=== PATIENT | female | born 1965 | race Caucasian/White ===

== ENCOUNTER 2018-11-25 15:04 | Inpatient (IN) | payer BC ==
[2018-11-25] MEDS ORDERED: ONDANSETRON 4 MG/2 ML VIAL IVP STA (15:10)
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
[2018-11-25 15:17] LABS: Glucose,Whole Blood 265 mg/dL (75-99)
[2018-11-25 15:40] LABS: INR 0.9 (<1.2); Partial Thromboplastin Time 25.9 sec (22.0-30.0); Prothrombin Time 10.2 sec (9.0-12.0)
[2018-11-25 15:43] LABS: Basophils # (A) 0.2 k/uL (0-0.2); Basophils % (A) 2 %; Eosinophils # (A) 0.6 k/uL (0-0.7); Eosinophils % (A) 4 %; HCT 48.8 % (34.0-46.0); HGB 15.7 gm/dL (11.4-16.0); Hypochromasia Slight; Lymphocytes # (A) 5.7 k/uL (1.0-4.8); Lymphocytes % (A) 38 %; MCH 30.4 pg (25.0-35.0); MCHC 32.2 g/dL (31.0-37.0); MCV 94.3 fL (80.0-100.0); Mean Platelet Volume 9.3; Monocytes # (A) 0.8 k/uL (0-1.0); Monocytes % (A) 6 %; Neutrophils % (A) 47 %; Platelet Count 327 k/uL (150-450); RBC 5.18 m/uL (3.80-5.40)
[2018-11-25 15:45] LABS: ABG Base Excess -15.2 mmol/L; ABG HCO3 13 mmol/L (21-25); ABG Oxygen Saturation 88.5 % (94-97); ABG PCO2 33 mmHg (35-45); ABG PO2 67 mmHg (83-108); ABG TCO2 14 mmol/L (19-24); Allen Test Performed? Yes
[2018-11-25 15:49] LABS: Appearance,Urine Clear (Clear); Bacteria,Urine Few /hpf; Bilirubin,Urine Negative (Negative); Blood,Urine Small (Negative); Color,Urine Yellow; Glucose,Urine (UA) Trace (Negative); Hyaline Casts,Urine 4 /lpf (0-2); Ketones,Urine Trace (Negative); Leukocyte Esterase,Urine Negative (Negative); Mucus,Urine Rare /hpf; Nitrite,Urine Positive (Negative); PH, Urine 6.5 (5.0-8.0); Protein,Urine 2+ (Negative); RBC,Urine 1 /hpf (0-5); Specific Gravity,Urine 1.019 (1.001-1.035); Squamous Epithelial Cell,Urine <1 /hpf (0-4); WBC,Urine 4 /hpf (0-5)
[2018-11-25 15:58] LABS: Amphetamine Screen,Urine Not Detected (NotDetected); Barbiturate Screen,Urine Not Detected (NotDetected); Benzodiazepines Screen,Urine Not Detected (NotDetected); Cocaine Screen,Urine Not Detected (NotDetected); Methadone Screen, Urine Not Detected (NotDetected); Opiate Screen,Urine Not Detected (NotDetected); Oxycodone Screen, Urine Not Detected (NotDetected); Phencyclidine Screen,Urine Not Detected (NotDetected); Tricyclic Antidepressant,Urine Not Detected (NotDetected); Urn Cannabinoid Scrn Detected (NotDetected)
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
[2018-11-25 16:07] LABS: ALT 28 U/L (9-52); AST 43 U/L (14-36); African American GFR (CKD) 59 (>60 ml/min/1.73 sqM); Albumin 3.9 g/dL (3.5-5.0); Alcohol <10 mg/dL; Alkaline Phosphatase 114 U/L (38-126); Anion Gap 25 mmol/L; Blood Urea Nitrogen 16 mg/dL (7-17); Calcium 8.9 mg/dL (8.4-10.2); Chloride 108 mmol/L (98-107); Creatine Kinase 199 U/L (30-135); Glucose 243 mg/dL (74-99); Potassium 3.9 mmol/L (3.5-5.1); Sodium 142 mmol/L (137-145); Total Bilirubin 0.7 mg/dL (0.2-1.3); Total Protein 6.8 g/dL (6.3-8.2)
[2018-11-25 16:18] LABS: Carbon Dioxide 9 mmol/L (22-30)
[2018-11-25] MEDS ORDERED: IPRATROPIUM-ALBUTEROL 3 ML NEB INHALATION STA (16:22)
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
[2018-11-25] MEDS ORDERED: PIPERACILLIN-TAZOBACTAM 3.375 GM in SODIUM CHLORIDE 0.9% 100 ML IVPB STA ×2 (16:32→17:09)
[2018-11-25] MEDS ORDERED: NALOXONE 0.4 MG/ML 1 ML VIAL IV PRN (16:47)
[2018-11-25] MEDS ORDERED: PIPERACILLIN-TAZOBACTAM 4.5 GM in SODIUM CHLORIDE 0.9% 100 ML IVPB STA (16:54)
[2018-11-25] MEDS ORDERED: SODIUM CHLORIDE 0.9% 1,000 ML IV SCH (17:00)
[2018-11-25] MEDS ORDERED: DEXTROSE 5% IN WATER 1,000 ML with SODIUM BICARB (1 MEQ/ML) 150 ML IV SCH (17:00)
[2018-11-25 19:15] LABS: Glucose,Whole Blood 227 mg/dL (75-99)
[2018-11-25 19:59] LABS: ABG Base Excess -5.2 mmol/L; ABG HCO3 21 mmol/L (21-25); ABG Oxygen Saturation 87.1 % (94-97); ABG PCO2 39 mmHg (35-45); ABG PH 7.34 (7.35-7.45); ABG TCO2 22 mmol/L (19-24); Allen Test Performed? Yes
[2018-11-25 20:01] LABS: ABG PO2 57 mmHg (83-108)
[2018-11-25] MEDS ORDERED: ROCURONIUM BROMIDE 10 MG/ML 10 ML VIAL IV ONE (20:15)
[2018-11-25] MEDS ORDERED: PHENYLEPHRINE 10 MG/ML VIAL ONE (20:15)
[2018-11-25] MEDS ORDERED: PROPOFOL 10 MG/ML 20 ML VIAL IV ONE (20:15)
[2018-11-25] MEDS ORDERED: SODIUM CHLORIDE 0.9% 1,000 ML IV ONE (20:30)
[2018-11-25] MEDS: IPRATROPIUM-ALBUTEROL 3 ML NEB INHALATION SCH ×2 (20:35→23:09)
[2018-11-25] MEDS: NOREPINEPHRINE 4 MG in SODIUM CHLORIDE 0.9% 250 ML IV SCH (20:40)
--- NOTE | 2018-11-25 20:42 | XR ---
EXAMINATION TYPE: XR chest 1V portable DATE OF EXAM: 11/25/2018 Comparison: 11/25/2018 Clinical History: 53 year-old female tube placement Findings: Heart normal size. ET tube tip 2.0 cm from the vero. NG tube courses below the diaphragm. Diffuse b ilateral airspace opacity. No sizable effusion seen on the frontal view. Impression: 1. ET tube tip 2.0 cm from the vero. Satisfactory NG tube. 2. Diffuse bilateral airspace disease persists, stable to slightly increased.
[2018-11-25] MEDS: PROPOFOL 1,000 MG in EMPTY BAG 1 BAG IV SCH (21:00)
[2018-11-25 21:21] LABS: Glucose,Whole Blood 237 mg/dL (75-99)
[2018-11-25 21:35] LABS: ABG Base Excess -5.3 mmol/L; ABG HCO3 21 mmol/L (21-25); ABG Oxygen Saturation 96.1 % (94-97); ABG PCO2 44 mmHg (35-45); ABG PH 7.29 (7.35-7.45); ABG PO2 96 mmHg (83-108); ABG TCO2 23 mmol/L (19-24); Allen Test Performed? Yes
[2018-11-25] MEDS ORDERED: HEPARIN SODIUM,PORCINE 5,000 UNIT/ML 1 ML VIAL IV PRN (21:48)
[2018-11-25] MEDS ORDERED: HEPARIN SODIUM,PORCINE 5,000 UNIT/ML 1 ML VIAL IV ONE (21:48)
[2018-11-25] MEDS: CHLORHEXIDINE GLUCONATE 15 ML CUP MUCOUS MEM SCH (22:24)
[2018-11-25] MEDS: HEPARIN SOD,PORK IN 0.45% NACL 25,000 UNIT in 0.45% NACL 1 250ML.BAG IV SCH (22:25)
[2018-11-25] MEDS: methylPREDNISolone SOD SUCCI 125 MG/2 ML VIAL IV SCH (22:26)
[2018-11-25 22:29] LABS: Glucose,Whole Blood 191 mg/dL (75-99)
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
[2018-11-26] LABS: Glucose,Whole Blood 171 mg/dL (75-99)
[2018-11-26] MEDS ORDERED: INSULIN ASPART (NovoLOG) 100 UNIT/ML VIAL SQ SCH
[2018-11-26] MEDS ORDERED: SODIUM CHLORIDE 0.9% 1,000 ML IV ONE (01:03)
[2018-11-26] MEDS: PIPERACILLIN-TAZOBACTAM 3.375 GM in SODIUM CHLORIDE 0.9% 100 ML IVPB SCH ×3 (01:13→17:10)
[2018-11-26] MEDS: methylPREDNISolone SOD SUCCI 125 MG/2 ML VIAL IV SCH ×4 (01:13→18:53)
[2018-11-26 01:18] LABS: Glucose,Whole Blood 190 mg/dL (75-99)
[2018-11-26] MEDS: PROPOFOL 1,000 MG in EMPTY BAG 1 BAG IV SCH ×6 (01:27→23:25)
[2018-11-26] MEDS: SODIUM CHLORIDE 0.9% 1,000 ML IV SCH ×3 (02:15→18:59)
[2018-11-26] MEDS: IPRATROPIUM-ALBUTEROL 3 ML NEB INHALATION SCH ×6 (03:05→23:14)
[2018-11-26 04:06] LABS: Appearance,Urine Cloudy (Clear); Bilirubin,Urine Negative (Negative); Blood,Urine Moderate (Negative); Color,Urine Light Red; Glucose,Urine (UA) Negative (Negative); Ketones,Urine Negative (Negative); Leukocyte Esterase,Urine Moderate (Negative); Mucus,Urine Rare /hpf; Nitrite,Urine Negative (Negative); Protein,Urine 1+ (Negative); RBC,Urine >182 /hpf (0-5); Specific Gravity,Urine 1.019 (1.001-1.035); Squamous Epithelial Cell,Urine 1 /hpf (0-4); Urobilinogen,Urine <2.0 mg/dL (<2.0)
[2018-11-26 04:17] LABS: Basophils % (A) 0 %; Eosinophils # (A) 0.1 k/uL (0-0.7); Eosinophils % (A) 0 %; HCT 45.6 % (34.0-46.0); HGB 14.7 gm/dL (11.4-16.0); Lymphocytes # (A) 0.7 k/uL (1.0-4.8); Lymphocytes % (A) 4 %; MCH 29.6 pg (25.0-35.0); MCHC 32.2 g/dL (31.0-37.0); MCV 92.1 fL (80.0-100.0); Mean Platelet Volume 8.6; Monocytes # (A) 0.2 k/uL (0-1.0); Monocytes % (A) 1 %; Neutrophils # (A) 16.3 k/uL (1.3-7.7); Neutrophils % (A) 94 %; Platelet Count 284 k/uL (150-450); RBC 4.95 m/uL (3.80-5.40); RDW 13.3 % (11.5-15.5); WBC 17.3 k/uL (3.8-10.6)
[2018-11-26 04:55] LABS: Calcium 7.6 mg/dL (8.4-10.2); Magnesium 2.1 mg/dL (1.6-2.3); Potassium 4.1 mmol/L (3.5-5.1)
[2018-11-26] MEDS: INSULIN ASPART (NovoLOG) 100 UNIT/ML VIAL SQ SCH ×4 (05:53→20:00)
[2018-11-26 06:01] LABS: Glucose,Whole Blood 187 mg/dL (75-99)
[2018-11-26 07:01] LABS: ABG Base Excess -2.3 mmol/L; ABG HCO3 22 mmol/L (21-25); ABG Oxygen Saturation 98.3 % (94-97); ABG PCO2 32 mmHg (35-45); ABG PH 7.44 (7.35-7.45); ABG PO2 182 mmHg (83-108); ABG TCO2 23 mmol/L (19-24); Allen Test Performed? Yes
--- NOTE | 2018-11-26 08:13 | XR ---
EXAMINATION TYPE: XR chest 1V DATE OF EXAM: 11/26/2018 COMPARISON: 11/25/2018 HISTORY: 53-year-old female mechanical ventilator, ICU management TECHNIQUE: Single frontal view of the chest is obtained. FINDINGS: ET and NG tubes are satisfactory. Heart remains upper limits of normal in size. Multifocal airspace d isease shows some improvement in the upper lungs and the right. IMPRESSION: Persistent but with some improvement in bilateral diffuse airspace disease
[2018-11-26] MEDS ORDERED: SODIUM CHLORIDE 0.9% 1,000 ML IV SCH (09:15)
[2018-11-26] MEDS: PANTOPRAZOLE 40 MG/10 ML VIAL IV SCH (09:32)
[2018-11-26] MEDS: ASPIRIN 81 MG PO SCH (09:33)
[2018-11-26] MEDS: ATORVASTATIN 40 MG TAB PO SCH (09:33)
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
--- NOTE | 2018-11-26 10:01 | ECHOF ---
Referral Reason:evaluate heart function MEASUREMENTS -------- HEIGHT: 167.6 cm WEIGHT: 83.0 kg BP: 90/69 IVSd: 0.7 cm (0.6 - 1.1) LVIDd: 5.5 cm (3.9 - 5.3) LVPWd: 1.0 cm (0.6 - 1.1) IVSs: 0.9 cm LVIDs: 5.0 cm LVPWs: 0.9 cm LAESV Index (A-L): 14.55 ml/m Ao Diam: 2.5 cm (2.0 - 3.7) AV Cusp: 1.2 cm (1.5 - 2.6) LA Diam: 2.9 cm (2.7 - 3.8) MV EXCURSION: 18.872 mm (> 18.000) MV EF SLOPE: 174 mm/s (70 - 150) EPSS: 1.8 cm MV E Chaka: 0.90 m/s MV DecT: 111 ms MV A Chaka: 0.35 m/s MV E/A Ratio: 2.56 RAP: 20.00 mmHg RVSP: 40.57 mmHg FINDINGS -------- Sinus rhythm. This was a technically good study. Pt. on a vent. The left ventricle is mildly dilated. Left ventricular wall thickness is normal. There is severe global hypokinesis of LV . Overall left ventricular systolic function is severely impaired with, an EF < 20%. Normal LAP Grade 1 Diastolic Dysfunction. The right ventricle is normal in size. The left atrial size is normal. Normal LA size by volume 22+/-6 ml/m2. The right atrial size is normal. Interatrial and interventricular septum intact. The aortic valve is trileaflet and appears structurally normal. The mitral valve is normal. There is trace mitral regurgitation. Mild tricuspid regurgitation present. There is mild pulmonary hypertension. The right ventricular systolic pressure, as measured by Doppler, is 40.57mmHg. There is no pulmonic regurgitation present. The aortic root size is normal. The inferior vena cava is dilated with no significant inspiratory collapse which is consistent estima vernon right atrial pressure of >20 mmHg. There is no pericardial effusion. CONCLUSIONS -------- 1. Sinus rhythm. 2. This was a technically good study. 3. Pt. on a vent. 4. The left ventricle is mildly dilated. 5. Left ventricular wall thickness is normal. 6. There is severe global hypokinesis of LV . 7. Overall left ventricular systolic function is severely impaired with, an EF < 20%. 8. Normal LAP Grade 1 Diastolic Dysfunction. 9. The right ventricle is normal in size. 10. The left atrial size is normal. 11. Normal LA size by volume 22+/-6 ml/m2. 12. The right atrial size is normal. 13. Interatrial and interventricular septum intact. 14. The aortic valve is trileaflet and appears structurally normal. 15. The mitral valve is normal. 16. There is trace mitral regurgitation. 17. Mild tricuspid regurgitation present. 18. There is mild pulmonary hypertension. 19. The right ventricular systolic pressure, as measured by Doppler, is 40.57mmHg. 20. There is no pulmonic regurgitation present. 21. The aortic root size is normal. 22. The inferior vena cava is dilated with no significant inspiratory collapse which is consistent es timated right atrial pressure of >20 mmHg. 23. There is no pericardial effusion. DRAIN CLEANER: Lindsay Solis RDCS
[2018-11-26] MEDS: CHLORHEXIDINE GLUCONATE 15 ML CUP MUCOUS MEM SCH ×2 (10:15→20:00)
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
[2018-11-26 12:19] LABS: Glucose,Whole Blood 171 mg/dL (75-99)
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
[2018-11-26] MEDS: NOREPINEPHRINE 4 MG in SODIUM CHLORIDE 0.9% 250 ML IV SCH ×2 (15:10→20:55)
[2018-11-26 16:56] LABS: Glucose,Whole Blood 175 mg/dL (75-99)
[2018-11-26] MEDS ORDERED: SODIUM CHLORIDE 0.9% 500 ML 500 ML IV ONE (18:27)
[2018-11-26] MEDS: HYDROmorphone 1 MG/ML 1 ML SYRINGE IVP PRN ×2 (18:46→20:55)
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
[2018-11-26 20:08] LABS: Glucose,Whole Blood 175 mg/dL (75-99)
[2018-11-26] MEDS ORDERED: methylPREDNISolone SOD SUCCI 125 MG/2 ML VIAL IV SCH (20:15)
[2018-11-26] MEDS: HEPARIN SOD,PORK IN 0.45% NACL 25,000 UNIT in 0.45% NACL 1 250ML.BAG IV SCH (20:54)
[2018-11-27] MEDS: methylPREDNISolone SOD SUCCI 125 MG/2 ML VIAL IV SCH ×5 (00:03→23:51)
[2018-11-27] MEDS: PIPERACILLIN-TAZOBACTAM 3.375 GM in SODIUM CHLORIDE 0.9% 100 ML IVPB SCH ×4 (00:04→23:52)
[2018-11-27] MEDS: INSULIN ASPART (NovoLOG) 100 UNIT/ML VIAL SQ SCH ×7 (00:04→23:52)
[2018-11-27 00:10] LABS: Glucose,Whole Blood 181 mg/dL (75-99)
[2018-11-27] MEDS: NOREPINEPHRINE 4 MG in SODIUM CHLORIDE 0.9% 250 ML IV SCH ×2 (02:57→23:45)
[2018-11-27] MEDS: PROPOFOL 1,000 MG in EMPTY BAG 1 BAG IV SCH ×8 (02:58→23:46)
[2018-11-27] MEDS: IPRATROPIUM-ALBUTEROL 3 ML NEB INHALATION SCH ×6 (02:59→23:33)
[2018-11-27] MEDS: SODIUM CHLORIDE 0.9% 1,000 ML IV SCH ×3 (03:33→14:01)
[2018-11-27 04:07] LABS: Glucose,Whole Blood 187 mg/dL (75-99)
[2018-11-27 05:02] LABS: Basophils % (A) 0 %; Eosinophils % (A) 0 %; HCT 37.1 % (34.0-46.0); HGB 12.1 gm/dL (11.4-16.0); Lymphocytes # (A) 0.8 k/uL (1.0-4.8); Lymphocytes % (A) 4 %; MCH 30.4 pg (25.0-35.0); MCHC 32.7 g/dL (31.0-37.0); MCV 92.8 fL (80.0-100.0); Mean Platelet Volume 8.8; Monocytes # (A) 0.7 k/uL (0-1.0); Monocytes % (A) 4 %; Neutrophils # (A) 17.6 k/uL (1.3-7.7); Neutrophils % (A) 91 %; Platelet Count 246 k/uL (150-450); RDW 13.5 % (11.5-15.5); WBC 19.3 k/uL (3.8-10.6)
[2018-11-27 05:13] LABS: African American GFR (CKD) >90 (>60 ml/min/1.73 sqM); Anion Gap 10 mmol/L; Blood Urea Nitrogen 17 mg/dL (7-17); Calcium 7.6 mg/dL (8.4-10.2); Carbon Dioxide 19 mmol/L (22-30); Chloride 114 mmol/L (98-107); Glucose 189 mg/dL (74-99); Magnesium 2.2 mg/dL (1.6-2.3); Potassium 3.1 mmol/L (3.5-5.1); Sodium 143 mmol/L (137-145)
[2018-11-27] MEDS ORDERED: HEPARIN SODIUM,PORCINE 5,000 UNIT/ML 1 ML VIAL IV STA (05:51)
[2018-11-27] MEDS ORDERED: Potassium Replacement Protocol 1 EACH MISC MISCELLANE PRN ×2 (06:06→20:09)
[2018-11-27] MEDS: POTASSIUM BICARBONATE/CIT AC 20 MEQ TABLET.EFF NG-TUBE SCH ×2 (06:34→08:55)
[2018-11-27 07:03] LABS: ABG Base Excess -0.8 mmol/L; ABG HCO3 23 mmol/L (21-25); ABG Oxygen Saturation 95.8 % (94-97); ABG PCO2 30 mmHg (35-45); ABG PH 7.49 (7.35-7.45); ABG PO2 74 mmHg (83-108); ABG TCO2 24 mmol/L (19-24); Allen Test Performed? Yes
--- NOTE | 2018-11-27 08:34 | XR ---
EXAMINATION TYPE: XR chest 1V portable DATE OF EXAM: 11/27/2018 CLINICAL HISTORY: Difficulty breathing progress study. TECHNIQUE: Single AP portable semiupright view of the chest is obtained. COMPARISON: Chest x-ray from one day earlier and older studies. FINDINGS: An endotracheal tube and orogastric tube are stable in appearance. Bibasilar opacities rem ain present. Upper lungs remain clear without pneumothorax. Cardiac silhouette size is stable and upp er limits of normal. Osseous structures are intact. IMPRESSION: Overall stable findings, persistent bibasilar infiltrates and/or atelectasis with possi ble small left pleural effusion. No significant change from one day earlier.
[2018-11-27] MEDS: PANTOPRAZOLE 40 MG/10 ML VIAL IV SCH (08:54)
[2018-11-27] MEDS: ASPIRIN 81 MG PO SCH (08:55)
[2018-11-27] MEDS: ATORVASTATIN 40 MG TAB PO SCH (08:55)
[2018-11-27] MEDS ORDERED: SODIUM CHLORIDE 0.9% 1,000 ML in EMPTY BAG 1 BAG IV ONE (09:36)
[2018-11-27] MEDS: HYDROmorphone 1 MG/ML 1 ML SYRINGE IVP PRN ×3 (09:38→20:18)
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
--- NOTE | 2018-11-27 09:54 | P.PN ---
<Petra Cornelius - Last Filed: 11/27/18 09:53> Subjective This is Petra Cornelius PA-C dictating a consult on this patient The patient was interviewed and examined by me IMPRESSION / ASSESSMENT: newly detected severe cardiomyopathy, rising troponins consistent with myocardial injury Acute respiratory distress Recent history of exertional chest discomfort Family history of CAD PLAN: Case discussed with family and Dr. Sequeira and Dr. Glez. Proceed with cath while intubated and further management thereafter HPI Patient admitted with respiratory distress and intubated. Found to have severely reduced systolic function, EF less than 20%. Peak Troponin 7.8 consistent with myocardial injury. Had a discussion with the family. Patient was having exertional symptoms for the last few months according to the family. She would complain of chest pain with minimal exertion such as climbing the stairs for the last few months. Also had shortness of breath with this. Also has a significant family history of CAD in her father and uncle. Patient also has had a lot of stress over the last few weeks after her daughter moved to [place]. Discussed workup for cardiomyopathy with the family. ROS: Unable to obtain secondary to patient sedated and intubated EXAMINATION: Pulse 71, respirations 24, blood pressure 115/75, O2 sat 95% patient intubated Patient resting comfortably, sedated and intubated Lungs equal air entry bilaterally Heart sounds regular rate and rhythm, no murmurs appreciated No lower extremity edema REVIEW OF LABS, ECG & MEDICAL DATA Hemoglobin 12.1 white count 19.3, potassium 3.1, BUNs 17, creatinine 0.8 to, magnesium 2.2 Objective - Vital Signs Vital signs: Vital Signs Temp 97.5 F L 11/27/18 08:00 Pulse 71 11/27/18 09:15 Resp 24 11/27/18 09:15 BP 115/75 11/27/18 09:15 Pulse Ox 95 11/27/18 09:15 Intake & Output 11/26/18 11/27/18 11/27/18 18:59 06:59 18:59 Intake Total 5690.139 4247.926 613.253 Output Total 1005 935 205 Balance 730.478 7564.926 408.253 Weight 84.7 kg 85.2 kg Intake: IV 750 1700 300 Piperacillin-Tazobactam 3 100 .375 gm In Sodium Chloride 0.9% 100 ml @ 25 mls/hr IVPB Q8HR [facility] Rx# :[id number] Sodium Chloride 0.9% 1, 750 1600 300 000 ml @ 150 mls/hr IV . Q6H40M [facility] Rx#:[id number] Intake, IV Titration 413.236 949.926 253.253 Amount Heparin Sod,Pork in 0.45% 207.833 NaCl 25,000 unit In 0.45 % NaCl 1 250ml.bag @ 12 UNITS/KG/HR 9.996 mls/hr IV .Q24H [facility] Rx#: [id number] Norepinephrine 4 mg In 266.115 359.002 125.677 Sodium Chloride 0.9% 250 ml @ 0.05 MCG/KG/MIN 15. 869 mls/hr IV .Q16H1M [facility] Rx#:[id number] Propofol 1,000 mg In 147.121 383.091 127.576 Empty Bag 1 bag @ Titrate IV .Q0M [facility] Rx#: [id number] Tube Feeding 20 170 60 Output: Gastric Drainage 50 Urine 955 935 205 Other: Voiding Method Indwelling Catheter Indwelling Catheter - Labs CBC & Chem 7: 11/27/18 04:19 11/27/18 04:19 Labs: Abnormal Lab Results - Last 24 Hours (Table) 11/26/18 11/26/18 11/26/18 Range/Units 08:55 12:07 16:44 WBC (3.8-10.6) k/uL Neutrophils # (1.3-7.7) k/uL Lymphocytes # (1.0-4.8) k/uL APTT (22.0-30.0) sec ABG pH (7.35-7.45) ABG pCO2 (35-45) mmHg ABG pO2 (83-108) mmHg Potassium (3.5-5.1) mmol/L Chloride (98-107) mmol/L Carbon Dioxide (22-30) mmol/L Glucose (74-99) mg/dL POC Glucose (mg/dL) 171 H 175 H (75-99) mg/dL Calcium (8.4-10.2) mg/dL Troponin I 7.800 H* (0.000-0.034) ng/mL 11/26/18 11/26/18 11/27/18 Range/Units 19:56 23:59 03:56 WBC (3.8-10.6) k/uL Neutrophils # (1.3-7.7) k/uL Lymphocytes # (1.0-4.8) k/uL APTT (22.0-30.0) sec ABG pH (7.35-7.45) ABG pCO2 (35-45) mmHg ABG pO2 (83-108) mmHg Potassium (3.5-5.1) mmol/L Chloride (98-107) mmol/L Carbon Dioxide (22-30) mmol/L Glucose (74-99) mg/dL POC Glucose (mg/dL) 175 H 181 H 187 H (75-99) mg/dL Calcium (8.4-10.2) mg/dL Troponin I (0.000-0.034) ng/mL 11/27/18 11/27/18 11/27/18 Range/Units 04:19 04:19 04:19 WBC 19.3 H (3.8-10.6) k/uL Neutrophils # 17.6 H (1.3-7.7) k/uL Lymphocytes # 0.8 L (1.0-4.8) k/uL APTT 43.4 H (22.0-30.0) sec ABG pH (7.35-7.45) ABG pCO2 (35-45) mmHg ABG pO2 (83-108) mmHg Potassium 3.1 L (3.5-5.1) mmol/L Chloride 114 H (98-107) mmol/L Carbon Dioxide 19 L (22-30) mmol/L Glucose 189 H (74-99) mg/dL POC Glucose (mg/dL) (75-99) mg/dL Calcium 7.6 L (8.4-10.2) mg/dL Troponin I (0.000-0.034) ng/mL 11/27/18 Range/Units 06:57 WBC (3.8-10.6) k/uL Neutrophils # (1.3-7.7) k/uL Lymphocytes # (1.0-4.8) k/uL APTT (22.0-30.0) sec ABG pH 7.49 H (7.35-7.45) ABG pCO2 30 L (35-45) mmHg ABG pO2 74 L (83-108) mmHg Potassium (3.5-5.1) mmol/L Chloride (98-107) mmol/L Carbon Dioxide (22-30) mmol/L Glucose (74-99) mg/dL POC Glucose (mg/dL) (75-99) mg/dL Calcium (8.4-10.2) mg/dL Troponin I (0.000-0.034) ng/mL Microbiology - Last 24 Hours (Table) 11/25/18 03:39 Urine Culture - Preliminary Urine,Catheterized 11/25/18 23:12 Gram Stain - Preliminary Sputum Sputum Culture - Preliminary <Leonel Mcgarry - Last Filed: 11/28/18 17:41> Subjective Family interviewed patient examined currently she is intubated Abnormal troponins in the rising trend Recent stressful situations in the family Patient is a current smoker but does not consume alcohol Uses marijuana but no drug use No history of any recent viral infection Coronary angiography recommended to delineate the epicardial coronary anatomy. My impression is that this is either stress cardio myopathy or myocarditis but given her severity of LV dysfunction and abnormality on ECG or proceed with coronary angiography Objective - Vital Signs Vital signs: Vital Signs Temp 98.6 F 11/28/18 16:00 Pulse 70 11/28/18 17:00 Resp 24 11/28/18 17:00 BP 100/70 11/28/18 17:00 Pulse Ox 94 L 11/28/18 17:00 Intake & Output 11/27/18 11/28/18 11/28/18 18:59 06:59 18:59 Intake Total 3808.816 2579.837 1149.195 Output Total 8466 935 7220 Balance 876.676 5354.837 -3455.805 Weight 84.3 kg Intake: IV 1100 1000 530 Piperacillin-Tazobactam 3 300 100 200 .375 gm In Sodium Chloride 0.9% 100 ml @ 25 mls/hr IVPB Q8HR [facility] Rx# :[id number] Sodium Chloride 0.9% 1, 400 000 ml @ 150 mls/hr IV . Q6H40M [facility] Rx#:[id number] Sodium Chloride 0.9% 1, 300 900 330 000 ml @ 20 mls/hr IV . Q24H [facility] Rx#:[id number] Intake, IV Titration 468.839 449.837 344.195 Amount Norepinephrine 4 mg In 168.839 91.509 Sodium Chloride 0.9% 250 ml @ 0.05 MCG/KG/MIN 15. 869 mls/hr IV .Q16H1M [facility] Rx#:[id number] Propofol 1,000 mg In 300.000 358.328 344.195 Empty Bag 1 bag @ Titrate IV .Q0M [facility] Rx#: [id number] Tube Feeding 80 160 215 Other 30 90 60 Output: Gastric Drainage 260 Urine 549 699 2303 Other: Voiding Method Indwelling Catheter Indwelling Catheter Indwelling Catheter - Labs CBC & Chem 7: 11/28/18 05:08 11/28/18 05:08 Labs: Abnormal Lab Results - Last 24 Hours (Table) 11/27/18 11/27/18 11/28/18 Range/Units 20:28 23:49 03:47 WBC (3.8-10.6) k/uL RBC (3.80-5.40) m/uL Hgb (11.4-16.0) gm/dL Hct (34.0-46.0) % Neutrophils # (1.3-7.7) k/uL Lymphocytes # (1.0-4.8) k/uL ABG pH (7.35-7.45) ABG pCO2 (35-45) mmHg ABG pO2 (83-108) mmHg ABG Total CO2 (19-24) mmol/L Chloride (98-107) mmol/L BUN (7-17) mg/dL Glucose (74-99) mg/dL POC Glucose (mg/dL) 157 H 167 H 154 H (75-99) mg/dL Calcium (8.4-10.2) mg/dL 11/28/18 11/28/18 11/28/18 Range/Units 05:08 05:08 06:59 WBC 11.8 H (3.8-10.6) k/uL RBC 3.46 L (3.80-5.40) m/uL Hgb 10.6 L (11.4-16.0) gm/dL Hct 33.2 L (34.0-46.0) % Neutrophils # 10.5 H (1.3-7.7) k/uL Lymphocytes # 0.6 L (1.0-4.8) k/uL ABG pH 7.49 H (7.35-7.45) ABG pCO2 31 L (35-45) mmHg ABG pO2 68 L (83-108) mmHg ABG Total CO2 25 H (19-24) mmol/L Chloride 115 H (98-107) mmol/L BUN 21 H (7-17) mg/dL Glucose 141 H (74-99) mg/dL POC Glucose (mg/dL) (75-99) mg/dL Calcium 7.9 L (8.4-10.2) mg/dL 11/28/18 11/28/18 11/28/18 Range/Units 08:01 11:19 12:20 WBC (3.8-10.6) k/uL RBC (3.80-5.40) m/uL Hgb (11.4-16.0) gm/dL Hct (34.0-46.0) % Neutrophils # (1.3-7.7) k/uL Lymphocytes # (1.0-4.8) k/uL ABG pH (7.35-7.45) ABG pCO2 (35-45) mmHg ABG pO2 76 L (83-108) mmHg ABG Total CO2 26 H (19-24) mmol/L Chloride (98-107) mmol/L BUN (7-17) mg/dL Glucose (74-99) mg/dL POC Glucose (mg/dL) 175 H 127 H (75-99) mg/dL Calcium (8.4-10.2) mg/dL 11/28/18 Range/Units 16:17 WBC (3.8-10.6) k/uL RBC (3.80-5.40) m/uL Hgb (11.4-16.0) gm/dL Hct (34.0-46.0) % Neutrophils # (1.3-7.7) k/uL Lymphocytes # (1.0-4.8) k/uL ABG pH (7.35-7.45) ABG pCO2 (35-45) mmHg ABG pO2 (83-108) mmHg ABG Total CO2 (19-24) mmol/L Chloride (98-107) mmol/L BUN (7-17) mg/dL Glucose (74-99) mg/dL POC Glucose (mg/dL) 130 H (75-99) mg/dL Calcium (8.4-10.2) mg/dL Microbiology - Last 24 Hours (Table) 11/25/18 23:12 Gram Stain - Final Sputum Sputum Culture - Final 11/25/18 03:39 Urine Culture - Final Urine,Catheterized
[2018-11-27] MEDS ORDERED: LIDOCAINE 1% INJ 10MG/ML (20 ML MDV) ONE (10:23)
[2018-11-27] MEDS ORDERED: IV FLUID CONTINUATION 950 ML IV ONE (10:49)
[2018-11-27] MEDS ORDERED: LIDOCAINE 1% INJ 10MG/ML (20 ML MDV) SQ ONE (10:49)
[2018-11-27] MEDS ORDERED: IOPAMIDOL-370 125ML BTL INJ ONE (11:16)
[2018-11-27] MEDS ORDERED: RX INFO: IV CONTRAST WAS GIVEN 1 EACH MISC MISCELLANE PRN (11:17)
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
[2018-11-27 12:30] LABS: Glucose,Whole Blood 141 mg/dL (75-99)
[2018-11-27] MEDS ORDERED: DEXMEDETOMIDINE/0.9% NACL(PMX) 400 MCG in EMPTY BAG 1 BAG IV SCH (14:15)
[2018-11-27] MEDS: CHLORHEXIDINE GLUCONATE 15 ML CUP MUCOUS MEM SCH ×2 (14:52→20:36)
--- NOTE | 2018-11-27 15:30 | CT ---
EXAMINATION TYPE: CT brain wo con DATE OF EXAM: 11/27/2018 HISTORY: unable to wake patient from sedation per order. Confusion. CT DLP: 1158.4 mGycm. Automated Exposure Control for Dose Reduction was Utilized. TECHNIQUE: CT scan of the head is performed without contrast. COMPARISON: CT brain from 2 days earlier.. FINDINGS: Endotracheal tube partially visualized on localizer image similar to prior. There is no a cute intracranial hemorrhage or midline shift identified. There is diffuse ventricular and sulcal pro minence consistent with diffuse age-related cerebral atrophy. Santana-white matter differentiation is pr eserved. Numerous left-sided ear rings are redemonstrated. The globes are intact and the visualized sinuses are clear. IMPRESSION: No acute intracranial hemorrhage or midline shift. There is mild diffuse age-related ce rebral atrophy redemonstrated. No significant change from prior.
[2018-11-27 16:49] LABS: Glucose,Whole Blood 155 mg/dL (75-99)
[2018-11-27] MEDS: HEPARIN SODIUM,PORCINE 5,000 UNIT/ML 1 ML VIAL SQ SCH ×2 (20:34→21:30)
[2018-11-27 20:39] LABS: Glucose,Whole Blood 157 mg/dL (75-99)
[2018-11-27] MEDS ORDERED: POTASSIUM BICARBONATE/CIT AC 20 MEQ TABLET.EFF NG-TUBE SCH (21:00)
[2018-11-28 00:01] LABS: Glucose,Whole Blood 167 mg/dL (75-99)
[2018-11-28] MEDS: SODIUM CHLORIDE 0.9% 1,000 ML IV SCH ×2 (02:11→09:35)
[2018-11-28] MEDS: PROPOFOL 1,000 MG in EMPTY BAG 1 BAG IV SCH ×9 (02:50→23:43)
[2018-11-28] MEDS: IPRATROPIUM-ALBUTEROL 3 ML NEB INHALATION SCH ×6 (03:05→23:02)
[2018-11-28] MEDS: HYDROmorphone 1 MG/ML 1 ML SYRINGE IVP PRN (03:48)
[2018-11-28] MEDS: INSULIN ASPART (NovoLOG) 100 UNIT/ML VIAL SQ SCH ×5 (03:52→21:01)
[2018-11-28 03:58] LABS: Glucose,Whole Blood 154 mg/dL (75-99)
[2018-11-28 05:28] LABS: Basophils % (A) 0 %; Eosinophils % (A) 0 %; HCT 33.2 % (34.0-46.0); HGB 10.6 gm/dL (11.4-16.0); Hypochromasia Marked; Lymphocytes # (A) 0.6 k/uL (1.0-4.8); Lymphocytes % (A) 5 %; MCH 30.7 pg (25.0-35.0); MCHC 32.1 g/dL (31.0-37.0); MCV 95.7 fL (80.0-100.0); Mean Platelet Volume 8.9; Monocytes # (A) 0.5 k/uL (0-1.0); Monocytes % (A) 4 %; Neutrophils # (A) 10.5 k/uL (1.3-7.7); Neutrophils % (A) 89 %; Platelet Count 171 k/uL (150-450); RBC 3.46 m/uL (3.80-5.40); RDW 14.1 % (11.5-15.5); WBC 11.8 k/uL (3.8-10.6)
[2018-11-28 05:44] LABS: African American GFR (CKD) >90 (>60 ml/min/1.73 sqM); Anion Gap 6 mmol/L; Blood Urea Nitrogen 21 mg/dL (7-17); Calcium 7.9 mg/dL (8.4-10.2); Carbon Dioxide 22 mmol/L (22-30); Chloride 115 mmol/L (98-107); Glucose 141 mg/dL (74-99); Sodium 143 mmol/L (137-145)
[2018-11-28] MEDS: methylPREDNISolone SOD SUCCI 125 MG/2 ML VIAL IV SCH (06:16)
[2018-11-28 07:05] LABS: ABG Base Excess 0.2 mmol/L; ABG HCO3 24 mmol/L (21-25); ABG Oxygen Saturation 95.3 % (94-97); ABG PCO2 31 mmHg (35-45); ABG PH 7.49 (7.35-7.45); ABG PO2 68 mmHg (83-108); ABG TCO2 25 mmol/L (19-24); Allen Test Performed? Yes
[2018-11-28 08:13] LABS: Glucose,Whole Blood 175 mg/dL (75-99)
[2018-11-28] MEDS: PANTOPRAZOLE 40 MG/10 ML VIAL IV SCH (08:42)
[2018-11-28] MEDS: HEPARIN SODIUM,PORCINE 5,000 UNIT/ML 1 ML VIAL SQ SCH ×2 (08:43→15:29)
[2018-11-28] MEDS: ATORVASTATIN 40 MG TAB PO SCH (08:43)
[2018-11-28] MEDS: CHLORHEXIDINE GLUCONATE 15 ML CUP MUCOUS MEM SCH ×2 (08:43→21:07)
[2018-11-28] MEDS: PIPERACILLIN-TAZOBACTAM 3.375 GM in SODIUM CHLORIDE 0.9% 100 ML IVPB SCH ×2 (08:43→16:37)
[2018-11-28] MEDS: ASPIRIN 81 MG PO SCH (08:43)
--- NOTE | 2018-11-28 09:07 | XR ---
EXAMINATION TYPE: XR chest 1V portable DATE OF EXAM: 11/28/2018 COMPARISON: 11/27/2018 INDICATION: Tube placement TECHNIQUE: Single frontal view of the chest is obtained. FINDINGS: The heart size is normal. The pulmonary vasculature is normal. Mild right lower lobe infiltrate is present. Some mild left lower lobe infiltrate may be present. Cor relate for subsegmental atelectasis. Findings are worsening over the interval. Small pleural effusion s are not excluded Endotracheal tube tip is above the vero. Nasogastric tube transverses the thorax. IMPRESSION: 1. Developing bilateral lung segmental atelectasis and/or small pleural effusions.
[2018-11-28] MEDS: FUROSEMIDE 10 MG/ML 4 ML VIAL IV SCH (09:24)
[2018-11-28] MEDS: MORPHINE SULFATE 2 MG/ML SYRINGE IVP PRN ×6 (09:25→23:39)
[2018-11-28] MEDS ORDERED: FUROSEMIDE 10 MG/ML 4 ML VIAL IV SCH (09:30)
[2018-11-28] MEDS ORDERED: MORPHINE SULFATE 2 MG/ML SYRINGE IVP STA (09:43)
--- NOTE | 2018-11-28 10:09 | XR ---
EXAMINATION TYPE: XR chest 1V portable DATE OF EXAM: 11/28/2018 COMPARISON: 11/28/2018 HISTORY: Pulmonary edema. Ventilatory dependent respiratory failure. TECHNIQUE: Single frontal view of the chest is obtained. FINDINGS: There is improving degree of pleural effusions however the bibasilar consolidations remain similar with moderate interstitial pulmonary edema remaining. Endotracheal tube appears appropriatel y placed. Enteric tube has been removed. Cardia mediastinal silhouette is stable. No acute osseous pa thology is seen. IMPRESSION: Improving pleural effusions however the bibasilar airspace disease appears similar, poss ibly confluent pulmonary edema or multifocal pneumonia (less likely).
[2018-11-28] MEDS ORDERED: LISINOPRIL 10 MG TAB PO SCH (10:45)
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
[2018-11-28 11:25] LABS: ABG Base Excess 0.1 mmol/L; ABG HCO3 25 mmol/L (21-25); ABG Oxygen Saturation 95.5 % (94-97); ABG PCO2 39 mmHg (35-45); ABG PH 7.41 (7.35-7.45); ABG PO2 76 mmHg (83-108); ABG TCO2 26 mmol/L (19-24); Allen Test Performed? Yes
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
[2018-11-28] MEDS ORDERED: LIDOCAINE 1% INJ 10MG/ML (20 ML MDV) ONE (11:37)
[2018-11-28] MEDS ORDERED: LIDOCAINE 1% INJ 10MG/ML (20 ML MDV) SQ ONE (12:00)
--- NOTE | 2018-11-28 12:23 | XR ---
EXAMINATION TYPE: XR chest 1V confirm line [facility] DATE OF EXAM: 11/28/2018 COMPARISON: 11/28/2018 HISTORY: PICC line placed TECHNIQUE: Single frontal view of the chest is obtained. FINDINGS: Bilateral pleural-parenchymal changes are stable. ET and NG tube stable. PICC line seen wi th the tip overlying the cavoatrial junction. No pneumothorax. IMPRESSION: 1. Correlate for CHF, diffuse pneumonia or ARDS. 2. PICC line appears in good position.
[2018-11-28 12:32] LABS: Glucose,Whole Blood 127 mg/dL (75-99)
--- NOTE | 2018-11-28 12:32 | IR ---
PICC LINE PLACEMENT: HISTORY: Infection requiring long-term antibiotic therapy PROCEDURE: Ultrasound guidance of PICC line placement. COMPLICATIONS: None ANESTHESIA: 1. 1% Lidocaine locally. FINDINGS/TECHNIQUE: The procedure was explained to the patient. The risks, complications, benefits and alternatives were discussed and any questions were answered. Informed consent was obtained. The patient was placed supine on the fluoroscopic table and prepped and draped in the usual sterile fash ion. Utilizing a 21 gauge needle and sonographic guidance, access in the right basilic vein was ach ieved and there is placement of a 0.018 guidewire. The vein is patent. A 5-F. sheath was placed ove r the guidewire. The guidewire and dilator were removed and a 5-F. Double lumen PICC line was placed through the sheath with the chest x-ray confirming the tip at the level of the SVC. The sheath was removed, the catheter was flushed and sutured into position. The patient was stable throughout the p rocedure and remained stable upon discharge from the Department of Radiology. The vein puncture was patent under ultrasound. A harmon scale image was obtained to document patency of the vein punctured. All elements of the maximal barrier technique were utilized. IMPRESSION: 1. Successful PICC line placement under ultrasound performed bedside within the ICU.
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
[2018-11-28] MEDS: SPIRONOLACTONE 25 MG TAB PO SCH (13:03)
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
[2018-11-28] MEDS ORDERED: FUROSEMIDE 10 MG/ML 4 ML VIAL IV ONE (16:00)
[2018-11-28 16:29] LABS: Glucose,Whole Blood 130 mg/dL (75-99)
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
[2018-11-28 20:13] LABS: Glucose,Whole Blood 125 mg/dL (75-99)
[2018-11-28] MEDS: methylPREDNISolone SOD SUCCI 40 MG/ML 1 ML VIAL IV SCH (21:07)
[2018-11-28 23:59] LABS: Glucose,Whole Blood 137 mg/dL (75-99)
[2018-11-29] MEDS: HEPARIN SODIUM,PORCINE 5,000 UNIT/ML 1 ML VIAL SQ SCH ×3 (00:08→16:11)
[2018-11-29] MEDS: INSULIN ASPART (NovoLOG) 100 UNIT/ML VIAL SQ SCH ×5 (00:08→16:30)
[2018-11-29] MEDS: FUROSEMIDE 10 MG/ML 4 ML VIAL IV SCH ×3 (00:08→21:17)
[2018-11-29] MEDS: PIPERACILLIN-TAZOBACTAM 3.375 GM in SODIUM CHLORIDE 0.9% 100 ML IVPB SCH ×3 (00:08→16:11)
[2018-11-29] MEDS: PROPOFOL 1,000 MG in EMPTY BAG 1 BAG IV SCH ×4 (02:18→10:16)
[2018-11-29] MEDS: IPRATROPIUM-ALBUTEROL 3 ML NEB INHALATION SCH ×6 (03:20→23:25)
[2018-11-29] MEDS: MORPHINE SULFATE 2 MG/ML SYRINGE IVP PRN ×3 (04:23→11:20)
[2018-11-29 04:37] LABS: Glucose,Whole Blood 172 mg/dL (75-99)
[2018-11-29 05:25] LABS: MCH 30.4 pg (25.0-35.0); MCHC 33.5 g/dL (31.0-37.0); MCV 90.8 fL (80.0-100.0); Mean Platelet Volume 8.7; Platelet Count 172 k/uL (150-450); RBC 3.96 m/uL (3.80-5.40); RDW 13.8 % (11.5-15.5); WBC 14.1 k/uL (3.8-10.6)
[2018-11-29] MEDS: NOREPINEPHRINE 4 MG in SODIUM CHLORIDE 0.9% 250 ML IV SCH (05:33)
[2018-11-29 05:41] LABS: ALT 36 U/L (9-52); AST 31 U/L (14-36); African American GFR (CKD) >90 (>60 ml/min/1.73 sqM); Albumin 3.4 g/dL (3.5-5.0); Alkaline Phosphatase 69 U/L (38-126); Anion Gap 10 mmol/L; Blood Urea Nitrogen 30 mg/dL (7-17); Calcium 8.1 mg/dL (8.4-10.2); Carbon Dioxide 26 mmol/L (22-30); Chloride 105 mmol/L (98-107); Glucose 140 mg/dL (74-99); Potassium 3.5 mmol/L (3.5-5.1); Sodium 141 mmol/L (137-145); Total Bilirubin 0.8 mg/dL (0.2-1.3); Total Protein 5.9 g/dL (6.3-8.2)
[2018-11-29 07:24] LABS: ABG Base Excess 6.4 mmol/L; ABG HCO3 29 mmol/L (21-25); ABG Oxygen Saturation 95.3 % (94-97); ABG PCO2 37 mmHg (35-45); ABG PH 7.51 (7.35-7.45); ABG PO2 78 mmHg (83-108); ABG TCO2 31 mmol/L (19-24); Allen Test Performed? Yes
--- NOTE | 2018-11-29 07:55 | XR ---
EXAMINATION TYPE: XR chest 1V portable DATE OF EXAM: 11/29/2018 CLINICAL HISTORY: Difficulty breathing progress study. TECHNIQUE: Single AP portable semiupright view of the chest is obtained. COMPARISON: Chest x-ray from one day earlier and older studies. FINDINGS: An endotracheal tube, The right-sided PICC line, and orogastric tube are stable in appear ance. Persistent bibasilar opacities improved. Upper lungs remain clear without pneumothorax. Cardiac silhouette size is upper limits of normal. Osseous structures are intact. IMPRESSION: Improving bilateral mid to lower lung edema and/or infiltrates.
[2018-11-29 08:22] LABS: Glucose,Whole Blood 111 mg/dL (75-99)
[2018-11-29] MEDS: methylPREDNISolone SOD SUCCI 40 MG/ML 1 ML VIAL IV SCH ×2 (08:50→21:16)
[2018-11-29] MEDS: PANTOPRAZOLE 40 MG/10 ML VIAL IV SCH (08:50)
[2018-11-29] MEDS: CHLORHEXIDINE GLUCONATE 15 ML CUP MUCOUS MEM SCH (08:50)
[2018-11-29] MEDS: POTASSIUM BICARBONATE/CIT AC 20 MEQ TABLET.EFF NG-TUBE SCH ×2 (08:51→10:20)
[2018-11-29] MEDS: ATORVASTATIN 40 MG TAB PO SCH (08:51)
[2018-11-29] MEDS: SPIRONOLACTONE 25 MG TAB PO SCH (08:51)
[2018-11-29] MEDS: LISINOPRIL 5 MG TAB PO SCH ×2 (08:51→16:12)
[2018-11-29] MEDS: ASPIRIN 81 MG PO SCH (08:51)
[2018-11-29] MEDS: METOPROLOL TARTRATE 12.5 MG TAB PO SCH ×2 (09:14→21:21)
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
[2018-11-29] MEDS ORDERED: DEXMEDETOMIDINE/0.9% NACL(PMX) 400 MCG in EMPTY BAG 1 BAG IV SCH (10:00)
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
[2018-11-29 12:04] LABS: Glucose,Whole Blood 150 mg/dL (75-99)
[2018-11-29 12:47] LABS: T4, Free (Free Thyroxine) 1.81 ng/dL (0.78-2.19)
[2018-11-29 13:40] LABS: Allen Test Performed? Yes
[2018-11-29 13:44] LABS: ABG Base Excess 8.8 mmol/L; ABG HCO3 33 mmol/L (21-25); ABG Oxygen Saturation 96.1 % (94-97); ABG PCO2 45 mmHg (35-45); ABG PH 7.47 (7.35-7.45); ABG PO2 93 mmHg (83-108); ABG TCO2 34 mmol/L (19-24)
[2018-11-29] MEDS: SODIUM CHLORIDE 0.9% 1,000 ML IV SCH (16:10)
[2018-11-29 16:31] LABS: Glucose,Whole Blood 118 mg/dL (75-99)
[2018-11-29] MEDS: ONDANSETRON 4 MG/2 ML VIAL IVP PRN (17:08)
[2018-11-29 23:43] LABS: Glucose,Whole Blood 120 mg/dL (75-99)
[2018-11-30] MEDS: INSULIN ASPART (NovoLOG) 100 UNIT/ML VIAL SQ SCH ×5 (00:09→21:42)
[2018-11-30] MEDS: NOREPINEPHRINE 4 MG in SODIUM CHLORIDE 0.9% 250 ML IV SCH ×2 (00:09→16:31)
[2018-11-30] MEDS: HEPARIN SODIUM,PORCINE 5,000 UNIT/ML 1 ML VIAL SQ SCH ×3 (00:10→16:40)
[2018-11-30] MEDS: PIPERACILLIN-TAZOBACTAM 3.375 GM in SODIUM CHLORIDE 0.9% 100 ML IVPB SCH ×3 (00:10→16:39)
[2018-11-30] MEDS: IPRATROPIUM-ALBUTEROL 3 ML NEB INHALATION SCH ×6 (03:15→20:10)
[2018-11-30 04:42] LABS: HCT 43.2 % (34.0-46.0); HGB 14.1 gm/dL (11.4-16.0); MCH 29.4 pg (25.0-35.0); MCHC 32.6 g/dL (31.0-37.0); MCV 90.1 fL (80.0-100.0); Platelet Count 211 k/uL (150-450); RBC 4.79 m/uL (3.80-5.40); RDW 14.4 % (11.5-15.5); WBC 15.9 k/uL (3.8-10.6)
[2018-11-30 05:02] LABS: ALT 61 U/L (9-52); AST 55 U/L (14-36); African American GFR (CKD) >90 (>60 ml/min/1.73 sqM); Albumin 4.3 g/dL (3.5-5.0); Alkaline Phosphatase 89 U/L (38-126); Anion Gap 12 mmol/L; Blood Urea Nitrogen 33 mg/dL (7-17); Calcium 8.6 mg/dL (8.4-10.2); Carbon Dioxide 31 mmol/L (22-30); Chloride 103 mmol/L (98-107); Glucose 128 mg/dL (74-99); Potassium 3.8 mmol/L (3.5-5.1); Sodium 146 mmol/L (137-145); Total Bilirubin 1.3 mg/dL (0.2-1.3); Total Protein 7.4 g/dL (6.3-8.2)
[2018-11-30 06:21] LABS: Glucose,Whole Blood 112 mg/dL (75-99)
--- NOTE | 2018-11-30 07:08 | XR ---
EXAMINATION TYPE: XR chest 1V portable DATE OF EXAM: 11/30/2018 CLINICAL HISTORY: Difficulty breathing progress study. TECHNIQUE: Single AP portable semiupright view of the chest is obtained. COMPARISON: Chest x-ray from one day earlier and older studies. FINDINGS: There is interval extubation with removal of endotracheal and orogastric tubes. Right-side d PICC line redemonstrated tip now advanced into right atrium. Cardiac silhouette size is stable and enlarged. Mild central vascular congestion remains present. No new suspicious focal airspace opacity, pleural effusion, or pneumothorax. Overlying EKG leads redemonstrated. Osseous structures are intact . IMPRESSION: Interval extubation. Cardiomegaly with mild central vascular congestion redemonstrated co rrelate for CHF exacerbation. No new infiltrate.
[2018-11-30] MEDS: PANTOPRAZOLE 40 MG/10 ML VIAL IV SCH (08:57)
[2018-11-30] MEDS: POTASSIUM CHLORIDE 10 MEQ in WATER FOR INJECTION 1 100ML.BAG IVPB SCH ×2 (08:58→12:18)
[2018-11-30] MEDS: ASPIRIN 81 MG PO SCH (08:59)
[2018-11-30] MEDS: ATORVASTATIN 40 MG TAB PO SCH (08:59)
[2018-11-30] MEDS: SPIRONOLACTONE 25 MG TAB PO SCH (08:59)
[2018-11-30] MEDS: METOPROLOL TARTRATE 12.5 MG TAB PO SCH (08:59)
[2018-11-30] MEDS: DEXTROSE 5%-0.45% NACL 1,000 ML IV SCH (09:00)
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
[2018-11-30] MEDS: CARVEDILOL 3.125 MG TAB PO SCH ×2 (09:28→16:40)
[2018-11-30] MEDS: ATORVASTATIN 20 MG TAB PO SCH (09:28)
[2018-11-30] MEDS: FUROSEMIDE 10 MG/ML 4 ML VIAL IV SCH ×2 (09:29→20:16)
[2018-11-30] MEDS: methylPREDNISolone 4 MG TAB TAPER PO SCH (09:29)
[2018-11-30] MEDS: ONDANSETRON 4 MG/2 ML VIAL IVP PRN (09:40)
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
[2018-11-30 12:13] LABS: Glucose,Whole Blood 156 mg/dL (75-99)
[2018-11-30] MEDS: LISINOPRIL 5 MG TAB PO SCH (16:32)
[2018-11-30 17:16] LABS: Glucose,Whole Blood 122 mg/dL (75-99)
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
[2018-11-30] MEDS ORDERED: IPRATROPIUM-ALBUTEROL 3 ML NEB INHALATION PRN (19:54)
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
[2018-11-30 21:13] LABS: Glucose,Whole Blood 132 mg/dL (75-99)
[2018-12-01] MEDS: HEPARIN SODIUM,PORCINE 5,000 UNIT/ML 1 ML VIAL SQ SCH ×3 (00:21→17:43)
[2018-12-01] MEDS: PIPERACILLIN-TAZOBACTAM 3.375 GM in SODIUM CHLORIDE 0.9% 100 ML IVPB SCH (00:21)
[2018-12-01 05:23] LABS: HCT 46.9 % (34.0-46.0); HGB 15.1 gm/dL (11.4-16.0); MCH 29.7 pg (25.0-35.0); MCHC 32.2 g/dL (31.0-37.0); MCV 92.2 fL (80.0-100.0); Mean Platelet Volume 8.8; Platelet Count 171 k/uL (150-450); RBC 5.09 m/uL (3.80-5.40); RDW 13.5 % (11.5-15.5); WBC 10.6 k/uL (3.8-10.6)
[2018-12-01 05:26] LABS: Calcium 8.7 mg/dL (8.4-10.2); Potassium 3.2 mmol/L (3.5-5.1); Total Bilirubin 1.3 mg/dL (0.2-1.3); Total Protein 6.9 g/dL (6.3-8.2)
[2018-12-01] MEDS: NOREPINEPHRINE 4 MG in SODIUM CHLORIDE 0.9% 250 ML IV SCH (07:06)
[2018-12-01] MEDS: CARVEDILOL 3.125 MG TAB PO SCH ×2 (07:09→17:43)
[2018-12-01] MEDS: POTASSIUM CHLORIDE ER 20 MEQ TAB.ER PO SCH ×2 (07:09→08:44)
[2018-12-01] MEDS: INSULIN ASPART (NovoLOG) 100 UNIT/ML VIAL SQ SCH ×4 (07:09→21:05)
[2018-12-01 07:15] LABS: Glucose,Whole Blood 161 mg/dL (75-99)
[2018-12-01] MEDS: IPRATROPIUM-ALBUTEROL 3 ML NEB INHALATION SCH ×4 (07:20→19:13)
--- NOTE | 2018-12-01 07:35 | XR ---
EXAMINATION TYPE: XR chest 1V portable DATE OF EXAM: 12/01/2018 COMPARISON: 11/30/2018 INDICATION: Tube placement TECHNIQUE: Single frontal view of the chest is obtained. FINDINGS: The heart size is normal. The pulmonary vasculature is normal. The lungs are clear. There is placement of a PICC line on the right with the tip in this right atrium. This is stable from comparison IMPRESSION: 1. No acute pulmonary process.
[2018-12-01] MEDS: POTASSIUM CHLORIDE 20 MEQ in WATER FOR INJECTION 1 100ML.BAG IVPB SCH ×2 (08:43→12:13)
[2018-12-01] MEDS: AMOXIC-POT CLAV 875-125MG 1 EACH TAB PO SCH ×2 (08:44→21:05)
[2018-12-01] MEDS: FUROSEMIDE 40 MG TAB PO SCH (08:44)
[2018-12-01] MEDS: SPIRONOLACTONE 25 MG TAB PO SCH (08:44)
[2018-12-01] MEDS: ATORVASTATIN 20 MG TAB PO SCH (08:44)
[2018-12-01] MEDS: methylPREDNISolone 4 MG TAB TAPER PO SCH (08:45)
[2018-12-01] MEDS: DEXTROSE 5%-0.45% NACL 1,000 ML IV SCH (08:46)
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
[2018-12-01 12:00] LABS: Glucose,Whole Blood 158 mg/dL (75-99)
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
[2018-12-01] MEDS: LISINOPRIL 5 MG TAB PO SCH (17:43)
[2018-12-01 17:45] LABS: Glucose,Whole Blood 105 mg/dL (75-99)
[2018-12-01] MEDS ORDERED: ACETAMINOPHEN TAB 325 MG TAB PO PRN (18:06)
[2018-12-01 20:06] LABS: Glucose,Whole Blood 148 mg/dL (75-99)
[2018-12-01 21:01] VITALS: RESP 18
[2018-12-01] MEDS: METOPROLOL TARTRATE 12.5 MG TAB PO SCH (22:57)
[2018-12-01] MEDS: ASPIRIN 81 MG PO SCH (22:57)
[2018-12-01] MEDS: ATORVASTATIN 40 MG TAB PO SCH (22:57)
[2018-12-02] MEDS: HEPARIN SODIUM,PORCINE 5,000 UNIT/ML 1 ML VIAL SQ SCH ×3 (00:45→17:04)
[2018-12-02] MEDS: DEXTROSE 5%-0.45% NACL 1,000 ML IV SCH (00:48)
[2018-12-02] MEDS: LISINOPRIL 5 MG TAB PO SCH (00:58)
[2018-12-02] MEDS: INSULIN ASPART (NovoLOG) 100 UNIT/ML VIAL SQ SCH ×3 (00:59→13:02)
[2018-12-02 07:22] LABS: Glucose,Whole Blood 150 mg/dL (75-99)
[2018-12-02] MEDS: IPRATROPIUM-ALBUTEROL 3 ML NEB INHALATION SCH ×3 (07:23→15:53)
[2018-12-02] MEDS ORDERED: PANTOPRAZOLE 40 MG TABLET PO SCH (07:30)
[2018-12-02] MEDS: CARVEDILOL 3.125 MG TAB PO SCH (09:18)
[2018-12-02] MEDS: ATORVASTATIN 20 MG TAB PO SCH (09:18)
[2018-12-02] MEDS: FUROSEMIDE 40 MG TAB PO SCH (09:18)
[2018-12-02] MEDS: AMOXIC-POT CLAV 875-125MG 1 EACH TAB PO SCH (09:20)
[2018-12-02] MEDS: methylPREDNISolone 4 MG TAB TAPER PO SCH (09:20)
[2018-12-02] MEDS: SPIRONOLACTONE 25 MG TAB PO SCH (09:21)
[2018-12-02 09:59] LABS: HCT 47.2 % (34.0-46.0); HGB 15.2 gm/dL (11.4-16.0); MCH 29.3 pg (25.0-35.0); MCHC 32.1 g/dL (31.0-37.0); MCV 91.3 fL (80.0-100.0); Mean Platelet Volume 9.3; Platelet Count 211 k/uL (150-450); RBC 5.17 m/uL (3.80-5.40); RDW 13.3 % (11.5-15.5); WBC 13.4 k/uL (3.8-10.6)
[2018-12-02 10:16] LABS: ALT 79 U/L (9-52); AST 57 U/L (14-36); African American GFR (CKD) >90 (>60 ml/min/1.73 sqM); Albumin 3.8 g/dL (3.5-5.0); Alkaline Phosphatase 87 U/L (38-126); Anion Gap 9 mmol/L; Blood Urea Nitrogen 33 mg/dL (7-17); Calcium 9.1 mg/dL (8.4-10.2); Carbon Dioxide 30 mmol/L (22-30); Chloride 100 mmol/L (98-107); Glucose 176 mg/dL (74-99); Potassium 3.5 mmol/L (3.5-5.1); Sodium 139 mmol/L (137-145); Total Bilirubin 1.1 mg/dL (0.2-1.3); Total Protein 6.6 g/dL (6.3-8.2)
[2018-12-02 11:05] VITALS: BMI 27.0
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
[2018-12-02 11:31] LABS: Glucose,Whole Blood 128 mg/dL (75-99)
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
[2018-12-02 12:03] VITALS: BP 93/70; PULSE 97; TEMP 97.6
--- NOTE | 2018-12-02 12:04 | ECHOF ---
Referral Reason:lv function MEASUREMENTS -------- HEIGHT: 167.6 cm WEIGHT: 75.7 kg BP: 112/84 IVSd: 1.4 cm (0.6 - 1.1) LVIDd: 3.8 cm (3.9 - 5.3) LVPWd: 1.2 cm (0.6 - 1.1) IVSs: 1.7 cm LVIDs: 2.8 cm LVPWs: 1.5 cm FINDINGS -------- Sinus rhythm. This was a technically adequate study. Limited Study The left ventricular size is normal. There is mild concentric left ventricular hypertrophy. Overa ll left ventricular systolic function is mild-moderately impaired with, an EF between 40 - 45 %. CONCLUSIONS -------- 1. Sinus rhythm. 2. This was a technically adequate study. 3. Limited Study 4. The left ventricular size is normal. 5. There is mild concentric left ventricular hypertrophy. 6. Overall left ventricular systolic function is mild-moderately impaired with, an EF between 40 - 45 %. PERSONAL CARE HOME ADMINISTRATOR: Rukhsana Phelan [facility]
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
== END 2018-12-02 17:20 | disposition home or self-care (01) | DRG 208 ==
LOC: EC 15:04 → 2SICU 16:47 → 3NMEDONC 12-01 15:15
PROVIDERS: ADMIT Family Medicine; ATTEND Family Medicine
PROC: 0BH17EZ Insertion of Endotracheal Airway into Trachea, Via Natural or Artificial Opening (ICD-10-PCS; principal; 2018-11-25)
PROC: 5A1945Z Respiratory Ventilation, 24-96 Consecutive Hours (ICD-10-PCS; principal; 2018-11-25)
PROC: B2111ZZ Fluoroscopy of Multiple Coronary Arteries using Low Osmolar Contrast (ICD-10-PCS; 2018-11-27)
PROC: 02HV33Z Insertion of Infusion Device into Superior Vena Cava, Percutaneous Approach (ICD-10-PCS; 2018-11-28)
PROC: 5A09457 Assistance with Respiratory Ventilation, 24-96 Consecutive Hours, Continuous Positive Airway Pressure (ICD-10-PCS; 2018-11-29)
DX: J96.01 Acute respiratory failure with hypoxia (principal); I21.4 Non-ST elevation (NSTEMI) myocardial infarction; J69.0 Pneumonitis due to inhalation of food and vomit; N17.0 Acute kidney failure with tubular necrosis; G93.41 Metabolic encephalopathy; I50.21 Acute systolic (congestive) heart failure; T75.1XXA Unspecified effects of drowning and nonfatal submersion, initial encounter; E87.2 Acidosis; G93.1 Anoxic brain damage, not elsewhere classified; I42.8 Other cardiomyopathies; J98.11 Atelectasis; Y93.11 Activity, swimming; F17.200 Nicotine dependence, unspecified, uncomplicated; F32.9 Major depressive disorder, single episode, unspecified; I44.7 Left bundle-branch block, unspecified; F41.9 Anxiety disorder, unspecified; G47.33 Obstructive sleep apnea (adult) (pediatric); I11.0 Hypertensive heart disease with heart failure; I25.10 Atherosclerotic heart disease of native coronary artery without angina pectoris; J45.909 Unspecified asthma, uncomplicated; K21.9 Gastro-esophageal reflux disease without esophagitis; L40.9 Psoriasis, unspecified; M19.90 Unspecified osteoarthritis, unspecified site; Z79.2 Long term (current) use of antibiotics; W16 Fall, jump or diving into water; Z79.899 Other long term (current) drug therapy; Z82.49 Family history of ischemic heart disease and other diseases of the circulatory system
CPT/HCPCS: 36415; 36573; 36600; 70450; 71045; 72125; 80048; 80053; 80306; 80320; 81001; 82140; 82550; 82805; 83605; 83735; 84132; 84439; 84443; 84484; 85025; 85027; 85610; 85730; 86850; 86900; 86901; 87070; 87086; 87205; 93005; 93306; 93308; 93458; 94002; 94003; 94640; 94660; 94760; 95816; 96365; 96368; 96375; 99291